=== PATIENT | male | born 1995 | race Caucasian/White ===

== ENCOUNTER 2017-10-07 04:52 | Inpatient (IN) ==
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
[2017-10-07] MEDS ORDERED: Aluminum/Magnesium/Simethacone Susp 30 ML UDC PO PRN (09:18)
--- NOTE | 2017-10-07 16:43 | P.CON ---
History of Present Illness Service: [facility] Consult date: 10/07/17 Requesting Physician: Franck Gill Reason for Consult: Chest pain and lower back pain Primary Care Provider: UNKNOWN Family Provider: Panchito Schmidt MD History of Present Illness: 22-year-old male who presented originally to [facility] on accompanied by grandmother due to increased depression and anxiety as well as crying spells, poor sleep and paranoia. Review of medical record showing slight tachycardia on presentation with heart rate of 117. CBC with slight leukocytosis with WBCs at 12.4, rest of CBC essentially unremarkable, BMP unremarkable, UA with no culture indicated. Patient was medically cleared and seen and evaluated by psychiatry in [facility]. He has been now admitted to inpatient psychiatry unit. [facility] consulted to evaluate for chest pain as well as back pain complaints. Nurse reports that patient has been very anxious as well as paranoid. Patient is seen and examined in the day room eating dinner this afternoon, he appears quite anxious. He is also emotional and at times tearful. When asked if he is having any pain or discomfort patient reports that he scratched his eye and is now concerned over this. Patient is requesting an x-ray so that he can "see for myself that my bones are not fractured". When asked if he had any injury or trauma his conversation derails into other topics. He is complaining of left abdominal pain, when asked when was his last bowel movement he reports it was when he was in the hospital, reports this was formed and green. Patient then goes on to tell me that he believes he took too many laxatives. He also states that he is scared to eat because he feels that every meal is going to be his last. He expresses concern over his dog's and states that he has not been able to get over this. He is also concerned over the fact that he does not have any shortness of breath or has not been coughing. Patient appears quite paranoid and extremely anxious, very poor historian. Review of Systems All other systems reviewed negative except as stated in HPI [facility] - History History Provided By: Family Member - Medical / Surgical Hx Neg / Unobtainable Surgical History: Unable to Obtain - Tobacco History Second Hand Smoke Exposure: No Tobacco Use In Past 30 Days: Yes Smoking Status: Heavy tobacco smoker Tobacco Type: Cigarettes - Alcohol History How Often Do You Have a Drink Containing Alcohol: Monthly or less - Substance Use History Substance History: Active Abuse - Substance Use Type Marijuana Type: LSD Status: Active Route Used: By Mouth, Inhalation Frequency: he denies daily but appears smoking daily often or regularly Last Used: a week ago Reason for Use: Calm Down, Sleep Comment: he denied any susbtance abuse minimized Marijuana at first, later came and states I think I have a bad reaction to LSD - Travel History Recent Travel in the [place] Within the Last 8 Weeks: No Recent Travel Out of the Country Within the Last 8 Weeks: No Medications and Allergies Active Medications: Active Medications Acetaminophen (Tylenol) 650 mg PO Q4H PRN PRN Reason: Pain 1-5 or Temp >101F Al Hydrox/Mg Hydrox/Simethicone (Mag-Al Plus Susp Liq) 30 ml PO Q6H PRN PRN Reason: DYSPEPSIA Al Hydroxide/Mg Hydroxide (Milk Of Magnesia Liq) 30 ml PO Q12H PRN PRN Reason: Mild Constipation Diphenhydramine HCl (Benadryl) 50 mg PO HS PRN PRN Reason: INSOMNIA Hydroxyzine HCl (Atarax) 50 mg PO Q6H PRN PRN Reason: ANXIETY Olanzapine (Zyprexa Inj) 10 mg IM Q12H PRN PRN Reason: SEVERE AGITATION Olanzapine (Zyprexa) 5 mg PO BID SARINA Allergies Allergy/AdvReac Type Severity Reaction Status Date / Time No Known Allergies Allergy Verified 10/07/17 09:12 Physical Exam Vital signs: Intake & Output 10/06/17 10/07/17 10/07/17 18:59 06:59 18:59 Weight 86 kg Other: Weight On Admission 86 kg Narrative: GENERAL: Well-nourished well-developed male, appears visibly anxious and worked up. SKIN: Warm and dry. HEAD: Atraumatic. Normocephalic. EYES: Pupils equal and round. No scleral icterus. No injection or drainage. ENT: No nasal bleeding or discharge. Mucous membranes pink and moist. NECK: Trachea midline. No JVD. CARDIOVASCULAR: Tachycardic, regular rate and rhythm. RESPIRATORY: No accessory muscle use. Clear to auscultation. Breath sounds equal bilaterally. GASTROINTESTINAL: Abdomen soft, non-tender, nondistended. Positive bowel sounds in all quadrants. No tenderness with stethoscope auscultation, seconds later tenderness with light palpation to abdomen. MUSCULOSKELETAL: Extremities without clubbing, cyanosis, or edema. No obvious deformities. No chest tenderness with palpation. NEUROLOGICAL: Awake and alert. No obvious cranial nerve deficits. Motor grossly within normal limits. Normal muscle strength in the arms and legs. Normal speech. PSYCHIATRIC: Emotional, tearful, anxious, appears paranoid with poor insight and judgment. Assessment and Plan - Plan 22-year-old male who presented originally to [facility] on accompanied by grandmother due to increased depression and anxiety as well as crying spells, poor sleep and paranoia. Review of medical record showing slight tachycardia on presentation with heart rate of 117. CBC with slight leukocytosis with WBCs at 12.4, rest of CBC essentially unremarkable, BMP unremarkable, UA with no culture indicated. Patient was medically cleared and seen and evaluated by psychiatry in [facility]. He has been now admitted to inpatient psychiatry unit. [facility] consulted to evaluate for chest pain as well as back pain complaints. Chest pain Back pain -Stat EKG with sinus tachycardia, initial troponin negative -Suspect patient's reports over chest pain are anxiety related. Of note patient also has a multitude of other complaints which are inconsistent with scattered thoughts. -Patient makes no mention of back pain, ambulating in the halls without assistive devices, normal gait. Abdominal pain -Patient reports bowel movement on 10/06, formed and green in color. He is seen eating dinner, no reports of nausea or vomiting from nursing. -Continue to monitor, possibly psychiatric related. Bipolar disorder -Treatment plan per psychiatry. DVT prophylaxis-ambulation Thank you for this consultation. Will continue to follow along for 1 more day and likely sign off tomorrow. Discussed Condition With: Patient and nursing staff.
[2017-10-07] MEDS: Acetaminophen 325 MG Tablet PO PRN (20:10)
--- NOTE | 2017-10-08 10:51 | P.PN ---
Subjective Interval history: Follow-up visit for chest pain and back pain. Spoke with nurse who reports patient continue to be very anxious. Patient also reported to her that he may have taken LSD. He is seen ambulating in the coyne. He reports that he "looked up ink poisoning on line" he is concerned about this. He is examined in his room with nurse present. He continues to be anxious although there is a slight improvement. When asked if there is anything that is hurting him, he states "I don't know, I don't know". No acute complaints or concerns. Physical Exam Vital signs: Vital Signs 10/07/17 20:29 10/08/17 06:12 Temperature 36.6 C 36.3 C L Pulse Rate 107 H 108 H Respiratory Rate 20 20 Blood Pressure 135/80 Pulse Oximetry 97 Intake & Output 10/07/17 10/08/17 10/08/17 18:59 06:59 18:59 Weight 86 kg Other: Weight On Admission 86 kg Narrative: GENERAL: Well-nourished well-developed male, appears visibly anxious and worked up. SKIN: Warm and dry. HEAD: Atraumatic. Normocephalic. EYES: Pupils equal and round. No scleral icterus. No injection or drainage. ENT: No nasal bleeding or discharge. Mucous membranes pink and moist. NECK: Trachea midline. No JVD. CARDIOVASCULAR: Tachycardic, regular rate and rhythm. RESPIRATORY: No accessory muscle use. Clear to auscultation. Breath sounds equal bilaterally. GASTROINTESTINAL: Abdomen soft, non-tender, nondistended. Positive bowel sounds in all quadrants. No tenderness. MUSCULOSKELETAL: Extremities without clubbing, cyanosis, or edema. No obvious deformities. No chest tenderness with palpation. NEUROLOGICAL: Awake and alert. No obvious cranial nerve deficits. Motor grossly within normal limits. Normal muscle strength in the arms and legs. Normal speech. PSYCHIATRIC: Emotional, tearful, anxious, appears paranoid with poor insight and judgment. Results - Labs Laboratory Results - last 24 hr 10/07/17 12:40 Troponin I Less than 0.02 L Assessment and Plan - Plan 22-year-old male who presented originally to [facility] on accompanied by grandmother due to increased depression and anxiety as well as crying spells, poor sleep and paranoia. Review of medical record showing slight tachycardia on presentation with heart rate of 117. CBC with slight leukocytosis with WBCs at 12.4, rest of CBC essentially unremarkable, BMP unremarkable, UA with no culture indicated. Patient was medically cleared and seen and evaluated by psychiatry in [facility]. He has been now admitted to inpatient psychiatry unit. [facility] consulted to evaluate for chest pain as well as back pain complaints. Chest pain Back pain -Stat EKG with sinus tachycardia, initial troponin negative -Suspect patient's reports over chest pain are anxiety related. No cardiac complaints. -Patient makes no mention of back pain, ambulating in the halls without assistive devices, normal gait. Abdominal pain -+ bowel sounds, no abdominal tenderness. Bipolar disorder -Treatment plan per psychiatry. - ? repots of LSD use. DVT prophylaxis-ambulation Medically no acute issues, believe his complaints are more psych related, discussed with patient, nurse and . [facility] will sign off, please reconsult if needed.
--- NOTE | 2017-10-08 15:51 | P.PNPSY ---
Subjective Remarks: This is a request for second opinion. Admission note was reviewed and I agree with the history. Patient was seen and case was discussed with nursing. Today patient is showing symptoms of psychosis. He has profound thought blocking with a flat affect. He is also quite anxious and when able to get out a couple sentences mentions that his anxiety is preventing him from thinking. He is having a productive visit with his family. Today, there are no signs of increased energy change in mood or other symptoms of richard. He denies suicidal or homicidal ideation intent or plan Mental Status Examination Appearance: Appropriate Consciousness: Alert, Vigilant Orientation: x4 Motor Activity: Other (Patient hyperactive and agitated) Speech: Hesitant, Slow Language: Adequate Fund of Knowledge: Adequate Attention and Concentration: Easily distracted Memory: Impaired Mood: Anxious Affect: Flat Thought Process & Associations: Disorganized Thought Content: Bizarre thinking Hallucination Type: None, Auditory (Would not answer today) Delusion Type: Paranoid Suicidal Ideation: No Suicidal Plan: No Suicidal Intention: No Homicidal Ideation: No Homicidal Plan: No Homicidal Intention: No Insight: Poor Judgment: Poor Assessment and Plan - Assessment (1) Cannabis abuse with psychotic disorder, unspecified Code(s): F12.159 - Cannabis abuse with psychotic disorder, unspecified Status : Acute (2) Bipolar I disorder, single manic episode, severe with psychotic features Code(s): F30.2 - Manic episode, severe with psychotic symptoms Status: Acute - Plan Plan: I agree with the first opinion to continue petition. Criteria include acute psychosis Justification for Continued Inpatient Stay: Patient would decompensate in a less restrictive setting Request Healthcare Surrogate/Guardian Advocate?: Yes
[2017-10-08] MEDS: LORazepam 1 MG Tablet PO PRN (17:51)
[2017-10-09] MEDS: LORazepam 1 MG Tablet PO PRN ×2 (04:39→16:54)
[2017-10-09 12:13] LABS: Calcium 9.9 mg/dL (8.5-10.1); Carbon Dioxide 25.4 meq/L (21.0-32.0)
--- NOTE | 2017-10-09 12:16 | ECG ---
Date Performed: 10/07/2017 Time Performed: 12:21:07 PTAGE: 22 years EKG: SINUS TACHYCARDIA BORDERLINE RIGHT AXIS DEVIATION ABNORMAL RHYTHM ECG NO PREVIOUS TRACING DOCTOR: Heidy Barton Interpretating Date/Time 10/09/2017 12:07:35
[2017-10-09 12:17] LABS: Chol/HDL Ratio 6.49 Ratio; HDL Cholesterol 40.5 mg/dL (40.0-60.0)
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
[2017-10-09 16:16] LABS: Hemoglobin A1c 4.8 % (4.3-6.0)
[2017-10-09 19:23] LABS: Folate 19.5 ng/mL (3.1-17.5)
[2017-10-10 09:21] LABS: Baso # (Auto) 0.1 th/mm3 (0.0-0.2); Baso % (Auto) 1.1 % (0.0-2.0); Eos # (Auto) 0.1 th/mm3 (0.0-0.4); Eos % (Auto) 0.5 % (0.0-4.0); Hematocrit 53.1 % (39.0-51.0); Hemoglobin 18.5 gm/dL (13.0-17.0); Lymph # (Auto) 2.1 th/mm3 (1.0-4.8); Lymph % (Auto) 19.8 % (9.0-44.0); Mean Corpuscular HGB Conc 34.8 % (32.0-36.0); Mean Corpuscular Hemoglobin 30.2 pg (27.0-34.0); Mean Corpuscular Volume 86.7 fL (80.0-100.0); Mean Platelet Volume 7.8 fL (7.0-11.0); Mono # (Auto) 0.9 th/mm3 (0.0-0.9); Mono % (Auto) 8.9 % (0.0-8.0); Neut # (Auto) 7.4 th/mm3 (1.8-7.7); Neut % (Auto) 69.7 % (16.0-70.0); Platelet Count 366 th/mm3 (150-450); Red Blood Count 6.12 mil/mm3 (4.50-5.90); Red Cell Distribution Width 12.7 % (11.6-17.2); White Blood Count 10.6 th/mm3 (4.0-11.0)
[2017-10-10 09:49] LABS: Calcium 10.5 mg/dL (8.5-10.1); Carbon Dioxide 21.9 meq/L (21.0-32.0); Potassium 4.1 meq/L (3.5-5.1)
[2017-10-10 10:03] LABS: Lymphocytes 24 % (9-44); Monocytes 9 % (0-8); Platelet Estimate Normal (Normal); Platelet Morphology Normal (Normal); RBC Morphology Normal (Normal)
--- NOTE | 2017-10-10 11:01 | P.PNPSY ---
Subjective Remarks: Patient seen and examined with counselor and nurse. Chart reviewed. Case discussed with nursing staff. Case discussed in treatment team. On my exam, patient presents with prominent thought blocking. He denies AVH but appears internally preoccupied. Ambivalence noted; patient reports he feels "better, actually I feel worse" and reports that the Zyprexa makes him feel "calm but anxious." No evidence of akathisia. Affect is quite flat. Concentration is self reportedly poor. Guilty rumination noted regarding use of cannabis prior to admission. No side effects from medications. No acute physical complaints. I did endeavor to reach patient's mother to discuss patient's progress at number listed in counselor's notes. Step-father answers and notes they are at a deck[employer] shrimp boat and requests a call back later. Vital Signs Temp Pulse Resp BP Pulse Ox 10/10/17 05:45 97.1 F L 109 H 18 133/69 100 Laboratory Results - last 24 hr 10/09/17 10/09/17 10/10/17 11:10 11:10 08:52 WBC 10.6 RBC 6.12 H Hgb 18.5 H Hct 53.1 H MCV 86.7 MCH 30.2 MCHC 34.8 RDW 12.7 Plt Count 366 MPV 7.8 Prelim Diff (Auto) Slide review pending Neut % (Auto) 69.7 Lymph % (Auto) 19.8 Irwin % (Auto) 8.9 H Eos % (Auto) 0.5 Baso % (Auto) 1.1 Neut # (Auto) 7.4 Lymph # (Auto) 2.1 Irwin # (Auto) 0.9 Eos # (Auto) 0.1 Baso # (Auto) 0.1 WBC Differential Manual diff final Seg Neuts % (Manual) 67 Lymphocytes % (Manual) 24 Monocytes % (Manual) 9 H Abs Neuts (Manual) 7.1 Differential Comment . Platelet Estimate Normal Platelet Morphology Normal RBC Morphology Normal ESR Sodium Potassium Chloride Carbon Dioxide Anion Gap BUN Creatinine Estimated GFR Random Glucose Hemoglobin A1c 4.8 Calcium Ammonia Vitamin B12 737 Folate 19.5 H RPR HIV 1&2 Ab/P24 Ag 4thGn 10/10/17 10/10/17 10/10/17 08:52 08:52 08:52 WBC RBC Hgb Hct MCV MCH MCHC RDW Plt Count MPV Prelim Diff (Auto) Neut % (Auto) Lymph % (Auto) Irwin % (Auto) Eos % (Auto) Baso % (Auto) Neut # (Auto) Lymph # (Auto) Irwin # (Auto) Eos # (Auto) Baso # (Auto) WBC Differential Seg Neuts % (Manual) Lymphocytes % (Manual) Monocytes % (Manual) Abs Neuts (Manual) Differential Comment Platelet Estimate Platelet Morphology RBC Morphology ESR Sodium Potassium Chloride Carbon Dioxide Anion Gap BUN Creatinine Estimated GFR Random Glucose Hemoglobin A1c Calcium Ammonia 28 Vitamin B12 Folate RPR Nonreactive HIV 1&2 Ab/P24 Ag 4thGn Nonreactive 10/10/17 10/10/17 08:52 08:52 WBC RBC Hgb Hct MCV MCH MCHC RDW Plt Count MPV Prelim Diff (Auto) Neut % (Auto) Lymph % (Auto) Irwin % (Auto) Eos % (Auto) Baso % (Auto) Neut # (Auto) Lymph # (Auto) Irwin # (Auto) Eos # (Auto) Baso # (Auto) WBC Differential Seg Neuts % (Manual) Lymphocytes % (Manual) Monocytes % (Manual) Abs Neuts (Manual) Differential Comment Platelet Estimate Platelet Morphology RBC Morphology ESR 1 Sodium 140 Potassium 4.1 Chloride 105 Carbon Dioxide 21.9 Anion Gap 13 BUN 20 H Creatinine 1.22 Estimated GFR 76 L Random Glucose 113 H Hemoglobin A1c Calcium 10.5 H Ammonia Vitamin B12 Folate RPR HIV 1&2 Ab/P24 Ag 4thGn EKG reviewed. Review of Systems unobtainable due to mental condition (Limitation: Psychosis) Mental Status Examination Appearance: Disheveled Consciousness: Alert Orientation: Person, Place (At least) Motor Activity: Other (No motor abnormalities noted) Speech: Hesitant, Slow Language: Adequate Fund of Knowledge: Adequate Attention and Concentration: Easily distracted Memory: Impaired (Psychosis likely interferes) Mood: Anxious Affect: Flat Thought Process & Associations: Tangential Thought Content: Bizarre thinking, Thought blocking Hallucination Type: Other (Internally stimulated) Delusion Type: None Suicidal Ideation: No Suicidal Plan: No Suicidal Intention: No Homicidal Ideation: No Homicidal Plan: No Homicidal Intention: No Insight: Poor Judgment: Poor Assessment and Plan - Assessment (1) Unspecified psychosis Code(s): F29 - Unspecified psychosis not due to a substance or known physiological condition Status: Acute (2) Cannabis abuse Code(s): F12.10 - Cannabis abuse, uncomplicated Status: Acute - Plan Plan: Patient remains severely decompensated with respect to psychotic illness. No discernible organic causes for patient's psychiatric symptoms so far. KIA, thiamine and MRI brain are still pending. I will consolidate patient's Zyprexa to HS and plan for a modest dose titration over the next 2 days: 10mg tonight ( total 17.5mg Zyprexa today) and 20mg tomorrow night. Follow up outstanding labs /studies. Continue to monitor on the inpatient unit. Continue other medications and care as ordered. Justification for Continued Inpatient Stay: Medication changes. Impairment in reality construction. High risk for decompensation in less restrictive environment. Discharge Planning: Pending psychiatric stabilization Request Healthcare Surrogate/Guardian Advocate?: Yes
[2017-10-10] MEDS ORDERED: OLANZapine 10 MG Tablet PO SCH (21:00)
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
--- NOTE | 2017-10-11 09:52 | MR ---
EXAM DATE: 10/11/2017 9:19 AM EDT AGE/SEX: 22 years / Male INDICATIONS: . Psychosis. CLINICAL DATA: This is the patient's initial encounter. Patient reports that signs and symptoms have been present for 2 days and indicates a pain score of 0/10. MEDICAL/SURGICAL HISTORY: None. None. COMPARISON: No prior exams available for comparison. TECHNIQUE: Multiplanar, multisequence examination of the brain was performed without contrast. FINDINGS: Cerebrum: The ventricles are normal for age. No evidence of midline shift, mass lesion, hemorrhage or acute infarction. No extraaxial fluid collections are seen. The pituitary gland and suprasellar cistern are normal in configuration. White Matter: No significant signal abnormalities are seen in the white matter. Posterior Fossa: The cerebellum and brainstem are intact. The 4th ventricle is midline. The cerebel lopontine angle is unremarkable. The cerebellar tonsils are normal in position. Diffusion Imaging: No focal areas of restricted diffusion are seen. No evidence of acute infarction . Extracranial: The visualized portions of the orbits and paranasal sinuses are unremarkable. CONCLUSION: 1. Unremarkable MRI of the brain. Electronically signed by: Sam Martines MD 10/11/2017 9:51 AM EDT
[2017-10-11] MEDS: OLANZapine 10 MG Tablet PO SCH (20:42)
--- NOTE | 2017-10-12 13:43 | P.PNPSY ---
Subjective Remarks: Patient seen and examined with nurse. Chart reviewed. Case discussed with nursing staff. Patient noted to be somewhat tearful and fretful overnight. On my exam today, patient seems improved. He is able to speak more fluently and degree of thought blocking seems decreased. He expresses appreciation for the care he is receiving here. He does remain somewhat anxious, but this too seems improved. He is less internally preoccupied. He continues to ruminate a little. No side effects from medications. No acute physical complaints. Asks to be transferred to 2600. Discussed case with patient's mother/healthcare surrogate. We discussed patient 's progress on the unit and review laboratory and imaging findings. She expresses concern about patient's blood glucose, noting that she had episodes of hypoglycemia when she was on psychotropics, and we agree to check a fasting glucose in the morning. Vital Signs Temp Pulse Resp BP Pulse Ox 10/12/17 06:00 97.7 F 102 H 16 124/68 100 10/11/17 17:21 98.0 F 118 H 16 141/82 H 97 Laboratory Results - last 24 hr 10/10/17 08:52 Thiamine 175 Labs reviewed. Thiamine level within normal limits. Review of Systems All other systems reviewed negative except as stated in HPI (Limitation: Psychosis) Mental Status Examination Appearance: Other (Fair) Consciousness: Alert Orientation: Person, Place (At least) Motor Activity: Other (No motoric abnormalities noted) Speech: Other (More normal for rate) Language: Adequate Fund of Knowledge: Adequate Attention and Concentration: Easily distracted Memory: Unremarkable Mood: Anxious (Decreasing) Affect: Anxious (Decreasing) Thought Process & Associations: Other (Much more organized today) Thought Content: Thought blocking (Decreasing) Hallucination Type: Other (Remains internally stimulated, decreasing) Delusion Type: None Suicidal Ideation: No Suicidal Plan: No Suicidal Intention: No Homicidal Ideation: No Homicidal Plan: No Homicidal Intention: No Insight: Poor Judgment: Poor Assessment and Plan - Assessment (1) Unspecified psychosis Code(s): F29 - Unspecified psychosis not due to a substance or known physiological condition Status: Acute (2) Cannabis abuse Code(s): F12.10 - Cannabis abuse, uncomplicated Status: Acute - Plan Plan: Patient seems to be improving with Zyprexa. I will continue with current dose for now, but to consider further titration of this agent in succeeding days. Check fasting glucose in the morning. Transfer to lower acuity unit. Continue other medications and care as ordered. Patient's case was presented to the [facility] and placed in continuance for 2 weeks with mother to serve as health care surrogate. Justification for Continued Inpatient Stay: High risk for decompensation in less restrictive environment. Discharge Planning: Pending psychiatric stabilization Request Healthcare Surrogate/Guardian Advocate?: Yes
[2017-10-12] MEDS: OLANZapine 10 MG Tablet PO SCH (21:42)
[2017-10-12] MEDS: Acetaminophen 325 MG Tablet PO PRN (21:43)
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
[2017-10-13] MEDS: OLANZapine 10 MG Tablet PO SCH (21:29)
--- NOTE | 2017-10-14 09:46 | P.PNPSY ---
Subjective Chief Complaint: Chart reviewed. Rounded on patient with Albert HESTER. Patient had just completed morning hygiene. He continues to have some psychomotor slowing and thought blocking. He endorses a lot of anxiety. Per report he is not social and he keeps to his room. He is preoccupied with following all the rules on the unit. He is medication compliant. He states that he is not depressed but that he is very anxious. Patient encouraged to participate in unit activities. Remarks: Patient is stable. Review of Systems All other systems reviewed negative except as stated in HPI Mental Status Examination Appearance: Appropriate Consciousness: Alert Orientation: Person, Place (At least) Motor Activity: Other (Minor psychomotor slowing. No other motor abnormalities noted.) Speech: Other (Again more normal for rate) Language: Adequate Fund of Knowledge: Adequate Attention and Concentration: Adequate Memory: Unremarkable Mood: Anxious Affect: Anxious Thought Process & Associations: Intact Thought Content: Thought blocking (Continues to decrease) Hallucination Type: None Delusion Type: None Suicidal Ideation: No Suicidal Plan: No Suicidal Intention: No Homicidal Ideation: No Homicidal Plan: No Homicidal Intention: No Insight: Poor Judgment: Poor Assessment and Plan - Assessment (1) Unspecified psychosis Code(s): F29 - Unspecified psychosis not due to a substance or known physiological condition Status: Acute - Plan Plan: Continue plan to titrate Zyprexa. Continue to monitor patient on inpatient unit. Justification for Continued Inpatient Stay: Moving patient to low-level care might result in his decompensation. Request Healthcare Surrogate/Guardian Advocate?: Yes (1) Unspecified psychosis Qualifiers: Schizoaffective disorder type: bipolar
[2017-10-14] MEDS: OLANZapine 10 MG Tablet PO SCH (20:15)
[2017-10-15] MEDS: Acetaminophen 325 MG Tablet PO PRN (09:02)
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
[2017-10-15] MEDS: OLANZapine 10 MG Tablet PO SCH (20:09)
--- NOTE | 2017-10-16 13:03 | P.PNPSY ---
Mental Status Examination Appearance: Appropriate Consciousness: Alert Orientation: Person, Place (At least) Motor Activity: Other (Minor psychomotor slowing. No other motor abnormalities noted.) Speech: Other (Again more normal for rate) Language: Adequate Fund of Knowledge: Adequate Attention and Concentration: Adequate Memory: Unremarkable Mood: Anxious Affect: Anxious Thought Process & Associations: Intact Thought Content: Thought blocking (Continues to decrease) Hallucination Type: None Delusion Type: None Suicidal Ideation: No Suicidal Plan: No Suicidal Intention: No Homicidal Ideation: No Homicidal Plan: No Homicidal Intention: No Insight: Poor Judgment: Poor Assessment and Plan - Assessment (1) Unspecified psychosis Code(s): F29 - Unspecified psychosis not due to a substance or known physiological condition Status: Acute (2) Cannabis abuse Code(s): F12.10 - Cannabis abuse, uncomplicated Status: Acute - Plan Request Healthcare Surrogate/Guardian Advocate?: Yes (1) Unspecified psychosis Qualifiers: Schizoaffective disorder type: bipolar
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
[2017-10-17] MEDS ORDERED: OLANZapine 10 MG Tablet PO SCH (09:00)
== END 2017-10-16 17:35 | disposition home or self-care (01) ==
LOC: H260 07:27 → H270 17:08 → H260 10-12 18:09
PROVIDERS: ADMIT Psychiatry & Neurology Psychiatry; ATTEND Psychiatry & Neurology Psychiatry